=== PATIENT | female | born 1945 | race Caucasian/White ===

== ENCOUNTER 2019-10-10 09:38 | Emergency (ER) | payer MEDICARE, OTHER ==
[~2019-10-10] VITALS: Ht 162.6 cm; Wt 65.8 kg
[2019-10-10 09:40] VITALS: Ht 162.6 cm; Wt 65.8 kg
--- NOTE | 2019-10-10 09:45 | NUR ---
PT BIBA FROM HOME FOR C/O SUDDEN ONSET DIZZINESS SINCE THIS AM UPON WAKING UP, STATES SHE WOKE UP, SAT UP AND FELT THE WHOLE ROOM SPINNING, STATESWORSE WITH MOVEMENT. DENIES ANY FEVERS/CHILLS. DENIES ANY CP OR SOB. RESP EVEN AND UNLABORED, ON RA @99%. REPORTS MILD NAUSEA/NO VOMITING. LIVES AT HOME WITH . AT BEDSIDE. PT REPORTS SHE IS DIABETIC, BUT DOES NOT RECALL HER MEDS. DENIES USING INSULIN. [facility]RON FOR ER MD LYONS. EKG IN PROCESS.
--- NOTE | 2019-10-10 11:07 | NUR ---
WAITING FOR E RMD EVAL, CHART TO BE SEEN.
--- NOTE | 2019-10-10 11:42 | NUR ---
PT TO CT SCAN
--- NOTE | 2019-10-10 12:32 | NUR ---
PT CONTINUES TO REPORT DIZZINESS/NAUSEA, ER MD NOTIFIED. NO FURTHER ORDERS RECEIVED AT THIS TIME.
--- NOTE | 2019-10-10 13:42 | NUR ---
PT REPORTS A DECREASE IN DIZZINESS, STS "I WAS ALMOST ASLEEP".
--- NOTE | 2019-10-10 14:28 | NUR ---
PT UP FOR DISCHARGE BUT UPON GIVING DC INSTRUCTIONS, PT STATES SHE STILL FEELS DIZZY AND NOT READY TO GO HOME. DR MIRANDA IN ROOM FOR RE-EXAM.
[2019-10-10 14:57] LABS: BASOPHIL % 0.1 % (0-2); PLATELET COUNT 208 x10^3mcL (130-400); RED CELL DISTRIBUTION WIDTH 15.9 % (11.5-14.5)
[2019-10-10 15:05] LABS: CALCIUM 8.9 mg/dL (8.5-10.1); CARBON DIOXIDE 27.4 mmol/L (21-32); CHLORIDE SERUM 97 mmol/L (98-107); CREATININE SERUM 0.7 mg/dL (0.6-1.0); GLUCOSE SERUM 288 mg/dL (74-106); POTASSIUM SERUM 4.5 mmol/L (3.5-5.1); SODIUM SERUM 133 mmol/L (136-145)
[2019-10-10 15:10] LABS: ALBUMIN 3.6 g/dL (3.4-5.0); ALKALINE PHOSPHATASE 100 U/L (46-116); ALT/SGPT 30 U/L (14-59); AST/SGOT 15 U/L (15-37); BILIRUBIN TOTAL 0.4 mg/dL (0.20-1.00); TOTAL PROTEIN, SERUM 7.9 g/dL (6.4-8.2)
--- NOTE | 2019-10-10 15:40 | NUR ---
PT REQUESTING FOOD, OK TO EAT PER DR LARA.
[2019-10-10] MEDS ORDERED: GLIPIZIDE2.5 M1 PO (16:07)
[2019-10-10] MEDS ORDERED: METFORMIN HYDR500 M1 PO (16:07)
--- NOTE | 2019-10-10 17:18 | NUR ---
PT STATES SHE FEELS BETTER AND WANTS TO GO HOME. PER DR. TRENT, OKAY TO GO AMA. RX GIVEN FOR ANTIVERT, DC WITH [facility]. IV SL DC'D. VSS.
[2019-10-10 17:20] VITALS: BP 155/74
== END 2019-10-10 17:20 | disposition left against medical advice (07) ==
LOC: ED 09:38 → DU 15:57 → ED 15:57
PROVIDERS: Emergency Medicine
DX: H81.10 Benign paroxysmal vertigo, unspecified ear (principal); E11.9 Type 2 diabetes mellitus without complications; Z98.890 Other specified postprocedural states
CPT/HCPCS: 36415; 82962; J1885; J8597; Q0092; Q0162

== ENCOUNTER 2019-11-03 10:23 | Emergency (ER) | payer MEDICARE, OTHER ==
[~2019-11-03] VITALS: Ht 157.5 cm; Wt 73.5 kg
[~2019-11-03 10:23] MED LIST: GLIPIZIDE2.5 M1 PO; METFORMIN HYDR500 M1 PO
[2019-11-03 10:30] VITALS: Ht 157.5 cm; Wt 73.5 kg
[2019-11-03 11:44] LABS: SODIUM SERUM 135 mmol/L (136-145)
[2019-11-03 11:45] LABS: ALBUMIN 3.5 g/dL (3.4-5.0); AST/SGOT 16 U/L (15-37); BILIRUBIN TOTAL 0.25 mg/dL (0.20-1.00); CALCIUM 8.5 mg/dL (8.5-10.1); CARBON DIOXIDE 26.7 mmol/L (21-32); CHLORIDE SERUM 99 mmol/L (98-107); CREATININE SERUM 0.7 mg/dL (0.6-1.0); GLUCOSE SERUM 252 mg/dL (74-106); POTASSIUM SERUM 4.3 mmol/L (3.5-5.1); TOTAL PROTEIN, SERUM 7.5 g/dL (6.4-8.2)
[2019-11-03 11:46] LABS: ALKALINE PHOSPHATASE 101 U/L (46-116); ALT/SGPT 22 U/L (14-59); AMYLASE 41 U/L (25-115); LIPASE 158 IU/L (73-393)
[2019-11-03 12:10] LABS: BASOPHIL % 0.2 % (0-2); PLATELET COUNT 182 x10^3mcL (130-400); RED CELL DISTRIBUTION WIDTH 16.2 % (11.5-14.5)
[2019-11-03 14:41] VITALS: BP 160/73
[2019-11-04] MEDS ORDERED: JANUVIA100 M1 PO (18:08)
[2019-11-04] MEDS ORDERED: GLIPIZIDE10 M2 PO (18:09)
[2019-11-04] MEDS ORDERED: FORTAMET500 M1 PO (18:10)
[2019-11-04] MEDS ORDERED: LYRICA100 M1 PO (18:11)
[2019-11-04] MEDS ORDERED: LYRICA50 M1 PO (18:11)
== END 2019-11-03 14:41 | disposition home or self-care (01) ==
LOC: ED 10:23
PROVIDERS: Emergency Medicine
DX: N20.0 Calculus of kidney (principal); I10 Essential (primary) hypertension; E11.9 Type 2 diabetes mellitus without complications
CPT/HCPCS: 36415; J1885

== ENCOUNTER 2019-11-04 08:49 | Inpatient (IN) | payer OTHER, MEDICARE ==
[~2019-11-04] VITALS: Ht 157.5 cm; Wt 72.6 kg
[2019-11-04 08:57] VITALS: Ht 157.5 cm; Wt 72.6 kg
[2019-11-04 10:23] LABS: BASOPHIL % 0.2 % (0-2); PLATELET COUNT 201 x10^3mcL (130-400)
[2019-11-04 10:29] LABS: microscopic required? YES; urine erythrocyte NEGATIVE (NEGATIVE)
[2019-11-04 10:33] LABS: RED CELL DISTRIBUTION WIDTH 15.6 % (11.5-14.5)
[2019-11-04 10:53] LABS: ALBUMIN 3.6 g/dL (3.4-5.0); CARBON DIOXIDE 27.6 mmol/L (21-32); CHLORIDE SERUM 93 mmol/L (98-107); CREATININE SERUM 0.7 mg/dL (0.6-1.0); GLUCOSE SERUM 348 mg/dL (74-106); POTASSIUM SERUM 4.4 mmol/L (3.5-5.1); SODIUM SERUM 127 mmol/L (136-145); TOTAL PROTEIN, SERUM 7.6 g/dL (6.4-8.2)
[2019-11-04 10:54] LABS: ALKALINE PHOSPHATASE 91 U/L (46-116); ALT/SGPT 25 U/L (14-59); AST/SGOT 15 U/L (15-37); BILIRUBIN TOTAL 0.5 mg/dL (0.20-1.00); CALCIUM 8.8 mg/dL (8.5-10.1)
[2019-11-04 13:03] LABS: CHOLESTEROL/HDL RATIO 2.9; MAGNESIUM 1.3 mg/dL (1.8-2.4); PHOSPHOROUS 3.3 mg/dL (2.5-4.9)
[2019-11-04 13:05] VITALS: BP 142/57
[2019-11-04 13:18] LABS: T4(THYROXINE) 8.9 ug/dL (4.7-13.3)
[2019-11-04 13:19] LABS: FREE T4 1.21 ng/dL (0.76-1.46); FREE THYROXINE INDEX 3.2 ug/dL (1.4-4.5); T3 TOTAL 1.16 ng/mL
[2019-11-04 14:34] VITALS: BP 142/57
[2019-11-04 17:07] VITALS: BP 156/93
[2019-11-04] MEDS ORDERED: JANUVIA100 M1 PO (18:08)
[2019-11-04] MEDS ORDERED: GLIPIZIDE10 M2 PO (18:09)
[2019-11-04] MEDS ORDERED: FORTAMET500 M1 PO (18:10)
[2019-11-04] MEDS ORDERED: LYRICA50 M1 PO (18:11)
[2019-11-04] MEDS ORDERED: LYRICA100 M1 PO (18:11)
[2019-11-04 20:44] VITALS: BP 177/82
[2019-11-05] VITALS (7 sets, daily range): BP systolic 109–195; BP diastolic 55–96
[2019-11-05 07:25] LABS: SODIUM SERUM 137 mmol/L (136-145)
[2019-11-05 07:26] LABS: CALCIUM 9.2 mg/dL (8.5-10.1); CARBON DIOXIDE 26.3 mmol/L (21-32); CHLORIDE SERUM 100 mmol/L (98-107); CREATININE SERUM 0.7 mg/dL (0.6-1.0); GLUCOSE SERUM 138 mg/dL (74-106)
[2019-11-06 05:44] VITALS: BP 169/79
[2019-11-06 06:05] VITALS: BP 155/70
[2019-11-06 06:33] LABS: BASOPHIL % 0.3 % (0-2); PLATELET COUNT 205 x10^3mcL (130-400)
[2019-11-06 06:56] LABS: RED CELL DISTRIBUTION WIDTH 16.3 % (11.5-14.5)
[2019-11-06 07:19] LABS: CARBON DIOXIDE 26.8 mmol/L (21-32); CHLORIDE SERUM 101 mmol/L (98-107); CREATININE SERUM 0.7 mg/dL (0.6-1.0); GLUCOSE SERUM 190 mg/dL (74-106); POTASSIUM SERUM 4.2 mmol/L (3.5-5.1); SODIUM SERUM 136 mmol/L (136-145)
[2019-11-06 07:20] LABS: CALCIUM 9.1 mg/dL (8.5-10.1)
[2019-11-06 08:12] VITALS: BP 155/76
[2019-11-06 08:25] VITALS: BP 155/76
[2019-11-06] MEDS ORDERED: FORTAMET500 M1 PO (10:03)
[2019-11-06] MEDS ORDERED: JANUVIA100 M1 PO (10:03)
[2019-11-06] MEDS ORDERED: NOR5 PO (10:04)
[2019-11-06] MEDS ORDERED: GLIPIZIDE2.5 M1 PO (10:04)
[2019-11-06] MEDS ORDERED: MECLIZINE HCL12.5 MG PO (10:06)
[2019-11-06] MEDS ORDERED: TOR10 PO (10:07)
[2019-11-06] MEDS ORDERED: ZES10 PO (10:14)
[2019-11-06 11:57] VITALS: BP 133/69
== END 2019-11-06 14:22 | disposition home or self-care (01) | DRG 426 ==
LOC: ED 08:49 → DU 11:50
PROVIDERS: Emergency Medicine; ADMIT Student in an Organized Health Care Education/Training Program
DX: E87.1 Hypo-osmolality and hyponatremia (principal); E11.65 Type 2 diabetes mellitus with hyperglycemia; I16.0 Hypertensive urgency; I10 Essential (primary) hypertension; N20.0 Calculus of kidney; Z91.11 Patient's noncompliance with dietary regimen; Z79.84 Long term (current) use of oral hypoglycemic drugs
CPT/HCPCS: 36415; 82962; 83880; 84439; G0378; J1885; J2765; J7030; J8597